=== PATIENT | female | born 1950 | race Caucasian/White ===

== ENCOUNTER 2017-02-24 12:47 | Outpatient (CLI) | payer OTHER, MEDICARE ==
--- NOTE | 2017-02-24 15:43 | MMO ---
BILATERAL SCREENING MAMMOGRAMS: Date: 02/24/17 Comparison made to prior exams from 2014 and 2013. This patient's mammogram was interpreted with the assistance of computer-aided detection. FINDINGS: Scattered fibroglandular densities. There is evidence of a new or enlarging nodular density seen in the upper outer left breast when compared to prior studies. Recommend further evaluation with diagno stic left breast exam. IMPRESSION: BIRADS 0: Incomplete: Need Additional Imaging Evaluation and/or Prior Mammograms for Comparison Further imaging of left breast required. The facility will notify the patient of the need for additional imaging services. POS: [facility]
== END 2017-02-24 12:48 | disposition home or self-care (01) ==
LOC: SCSMAMMO 12:47
PROVIDERS: ATTEND Family Medicine
DX: Z12.31 Encounter for screening mammogram for malignant neoplasm of breast (principal)
CPT/HCPCS: 77067; G0202

== ENCOUNTER 2017-05-20 12:21 | Outpatient (CLI) | payer OTHER, MEDICARE ==
[2017-05-20 13:11] LABS: Free T4 (Free Thyroxine) 1.15 ng/dL (0.70-1.48); Thyroid Stimulating Hormone 1.1637 uIU/mL (0.35-4.94)
--- NOTE | 2017-05-20 14:02 | RAD ---
CHEST 2 VIEWS: HISTORY: Cough. COMPARISON: 12/22/13. FINDINGS: Cardiac silhouette and pulmonary vasculature are unremarkable. Mediastinum is midline. There is no confluent airspace consolidation, pneumothorax, or pleural fluid. IMPRESSION: No active cardiopulmonary abnormalities are demonstrated. POS: [facility]
== END 2017-05-20 12:22 | disposition home or self-care (01) ==
LOC: SCSRAD 12:21
PROVIDERS: ATTEND Family Medicine
DX: R05 Cough (principal); E03.9 Hypothyroidism, unspecified
CPT/HCPCS: 36415; 71046; 84439; 84443; 84481

== ENCOUNTER 2017-06-24 09:47 | Outpatient (CLI) | payer MEDICARE, OTHER | END 2017-06-24 09:48 | disposition home or self-care (01) | LOC: BICMAMMO 09:47 | PROVIDERS: ATTEND Family Medicine | DX: Z13.820 Encounter for screening for osteoporosis (principal); Z78.0 Asymptomatic menopausal state | CPT/HCPCS: 77080 ==

== ENCOUNTER 2017-08-26 17:31 | Outpatient (CLI) | payer OTHER, MEDICARE ==
--- NOTE | 2017-08-26 20:07 | RAD ---
THREE VIEWS OF THE RIGHT FOOT: 08/26/17 INDICATION: Dropped large bone on right foot five days ago now with right foot pain. FINDINGS: No acute fracture or subluxation is evident. There is enthesopathic change off of the calcaneus. Ther e is a well circumscribed lucency involving the calcaneal bodies suspicious for a unicameral bone cys t. It could also be related to an interosseous lipoma. Mild degenerative changes are seen within the midfoot and forefoot. IMPRESSION: 1. No acute osseous abnormality. 2. Well circumscribed lucency involving the calcaneal body measuring 3 cm is suspicious for eith er unicameral bone cyst or possibly an interosseous lipoma. POS: [facility]
== END 2017-08-26 17:32 | disposition home or self-care (01) ==
LOC: SCSRAD 17:31
PROVIDERS: ATTEND Family Medicine
DX: M79.671 Pain in right foot (principal)

== ENCOUNTER 2018-04-22 18:00 | Outpatient (CLI) | payer OTHER, MEDICARE | END 2018-04-22 18:01 | disposition home or self-care (01) | LOC: SLEEPLAB 18:00 | PROVIDERS: ATTEND Family Medicine | DX: G47.33 Obstructive sleep apnea (adult) (pediatric) (principal); R51 Headache; E66.9 Obesity, unspecified; R06.83 Snoring; I10 Essential (primary) hypertension; E11.9 Type 2 diabetes mellitus without complications; F41.9 Anxiety disorder, unspecified; F32.9 Major depressive disorder, single episode, unspecified; Z68.30 Body mass index [BMI] 30.0-30.9, adult | CPT/HCPCS: 95806 ==

== ENCOUNTER 2018-06-06 04:33 | Observation (INO) | payer OTHER, MEDICARE ==
[2018-06-06] MEDS ORDERED: Clopidogrel Bisulfate 75 MG TAB ONE (05:10)
[2018-06-06] MEDS ORDERED: Mag-Al 1200 mg/1200 mg/30 ML UDCUP ONE (05:11)
[2018-06-06] MEDS ORDERED: Lidocaine Viscous Sol 2% 15 ml UD Cup ONE (05:11)
[2018-06-06] MEDS ORDERED: Nitroglycerin 0.4 MG TAB (25 Tab Bottle) PO PRN (07:57)
[2018-06-06] MEDS ORDERED: Ondansetron PF 4 MG/2 ML Vial IVP PRN (08:01)
[2018-06-06] MEDS ORDERED: Acetaminophen 325 MG TAB PO PRN (08:01)
[2018-06-06] MEDS ORDERED: Ondansetron ODT 4 MG TAB PO PRN (08:01)
[2018-06-06] MEDS ORDERED: Calcium Carbonate 500 MG ChewTAB PO PRN (08:01)
[2018-06-06] MEDS ORDERED: hydrALAZINE 20 MG/ML VIAL SLOW IVP PRN (08:03)
[2018-06-06] MEDS ORDERED: Cyclobenzaprine 10 MG TAB PO PRN (08:06)
[2018-06-06] MEDS ORDERED: tiZANidine HCl 4 MG TAB PO PRN (08:07)
[2018-06-06] MEDS ORDERED: Levothyroxine Sodium 100 MCG TAB PO SCH (08:30)
[2018-06-06] MEDS ORDERED: DULoxetine 60 MG CAP PO SCH (09:00)
[2018-06-06] MEDS ORDERED: ADENOSINE 60 MG/20 ML VIAL ONE (09:27)
[2018-06-06] MEDS ORDERED: Lisinopril 10 MG TAB ONE (11:37)
[2018-06-06] MEDS ORDERED: Iopamidol 370 76% 100 ML VIAL ONE (13:20)
--- NOTE | 2018-06-06 14:49 | NM ---
NUCLEAR MEDICINE CARDIAC MYOCARDIAL PERFUSION SPECT EJECTION FRACTION STUDY WALL MOTION CINE: DATE: 06/06/2018. HISTORY: A 67-year-old female with hypertension, diabetes mellitus, dyslipidemia, and family history of singh ry artery disease who presents with acute chest pain. TECHNIQUE: Number of days: 1. Rest study: Tc99m sestamibi (Cardiolite) dose: 9.7 mCi. Pharmacologic stress: adenosine dose: 40.3 mg. Stress study: Tc99m sestamibi (Cardiolite) dose: 30.0 mCi. FINDINGS: CARDIAC (MYOCARDIAL PERFUSION) SPECT Distribution of sestamibi is homogeneous throughout the left ventricle, with no fixed or reversible m yocardial perfusion defects. EJECTION FRACTION STUDY EF = 73% WALL MOTION CINE The left ventricular wall motion is normal. There is normal systolic wall thickening. IMPRESSION: Normal. venkat[] POS: [facility]
--- NOTE | 2018-06-06 15:51 | CT ---
PRELIMINARY REPORT/[facility]/EMERGENTY AFTER-HOURS PROCEDURE CT Angiography Chest With Contrast EXAM DATE/TIME: 06/06/2018 5:05 AM CLINICAL HISTORY: 67 years old, female; Pain; Chest pain; Other: Chets pain; Prior surgery; Patient HX: Er 1; Presents for evaluation of chest pain which she says started in her back behind her l shoulder blade and radia estefany to her chest. Patient was asleep when the pain started and reports that it has been intermittent since and has never experienced anything like this before. Denies HX of mi or blood clot s. Surgical history of cholecystectomy TECHNIQUE: Axial computed tomographic angiography images of the chest with intravenous contrast using CT angiogr aphy protocol. Coronal and sagittal reformatted images were created and reviewed. MIP reconstructed images were created and reviewed. COMPARISON: No relevant prior studies available. FINDINGS: Pulmonary arteries: There is no evidence of peripheral filling defects within the pulmonary arterial circulation to suggest pulmonary embolism. Aorta: The aorta is normal. There is no evidence of aortic dissection, leak, rupture, or other compli cations. Lungs: There is a 4 mm RIGHT upper lobe pulmonary nodule. Pleural space: Normal. No pneumothorax. No pleural effusion. Heart: Normal. No cardiomegaly. No pericardial effusion. Lymph nodes: Unremarkable. No enlarged lymph nodes. Bones/joints: Unremarkable. No acute fracture. Soft tissues: Unremarkable. IMPRESSION: 1. There is no evidence of aortic dissection, leak, rupture, or other complications. 2. There is no CT evidence of acute pulmonary embolism. 3. There is a 4 mm RIGHT upper lobe pulmonary nodule. For patients at low risk (minimal or absent his tory of smoking and of other known risk factors), no routine follow-up is indicated. For patients at high risk (history of smoking or of other known risk factors), consider optional CT at 12 months. (Jasyhree Escobar et al., Fleischner Society, 2017) CT Angiography Abdomen With Contrast EXAM DATE/TIME: 06/06/2018 5:05 AM TECHNIQUE: Axial computed tomographic angiography images of the abdomen with intravenous contrast material, incl uding non-contrast images if performed. MIP and/or 3D reconstructed images were created and reviewed. Coronal and sagittal reformatted images were created and reviewed. COMPARISON: No relevant prior studies available. FINDINGS: Lungs: Unremarkable. No consolidation. VASCULATURE: Aorta: The aorta is normal. There is no evidence of aortic dissection, leak, rupture, or other compli cations. Celiac trunk and mesenteric arteries: No occlusion or significant stenosis. Renal arteries: No occlusion or significant stenosis. ABDOMEN: Liver: There are no focal liver lesions identified. Gallbladder and bile ducts: There has been a cholecystectomy. Pancreas: The pancreas appears normal. No ductal dilatation. Spleen: The spleen is normal. Adrenals: The adrenal glands are normal. Kidneys and ureters: The kidneys appear normal. No hydronephrosis. Stomach and bowel: The stomach is normal. The duodenum is unremarkable. Intraperitoneal space: Unremarkable. No free air. No significant fluid collection. Bones/joints: Unremarkable. No acute fracture. No dislocation. Soft tissues: Unremarkable. Lymph nodes: Unremarkable. No enlarged lymph nodes. IMPRESSION: There is no evidence of aortic dissection, leak, rupture, or other complications. Thank you for allowing us to participate in the care of your patient. Dictated and Authenticated by: Brendan Marcos MD 06/06/2018 5:28 AM Central Time ([place] & [place]) FINAL REPORT CTA CHEST WITH IV COTNRAST AND 3D POSTPROCESSING CTA ABDOMEN WITH IV CONTRAST AND 3D POSTPROCESSING: I agree with the preliminary report given by Dr. Brendan Marcos of [facility]. POS: [facility]
[2018-06-06] MEDS ORDERED: DULoxetine 30 MG CAP PO SCH (21:00)
[2018-06-06] MEDS ORDERED: Lisinopril 10 MG TAB PO SCH (21:00)
[2018-06-06] MEDS ORDERED: Atorvastatin Calcium 10 MG TAB PO SCH (21:00)
[2018-06-07] MEDS ORDERED: Levothyroxine Sodium 100 MCG TAB PO SCH (06:00)
--- NOTE | 2018-06-07 07:18 | SS ---
DATE OF ADMISSION: 06/06/2018 DATE OF DISCHARGE: 06/04/2018 CHIEF COMPLAINT: Chest discomfort. HISTORY OF PRESENT ILLNESS: The patient is a 67-year-old female with hypertension, hyperlipidemia, diabetes mellitus type 2, and GERD, presented to the emergency room at [facility] with chest discomfort. The patient woke up with sudden onset of chest discomfort that was between the scapula radiating to her left arm. She denies any associated diaphoresis, nausea, vomiting, palpitations, or syncope. The pain was worse on deep breathing. She denies recent immobilization, travel, fever, chills, cough, or heartburn. The pain was moderate in intensity that lasted for approximately 1 hour. The pain somewhat improved after sublingual nitroglycerin. She was transferred to this facility where the pain came back. For this reason , she underwent an aortic dissection protocol that was negative per ER physician report. Her initial vital signs in the emergency room showed temperature 97.9, respirations 14, pulse rate of 79 with a blood pressure of 153/104, O2 saturation 97% on room air. The chest discomfort has resolved at this time. PAST MEDICAL HISTORY: 1. Hypothyroidism. 2. Hypertension. 3. Hyperlipidemia. 4. Diabetes mellitus type 2. 5. Fibromyalgia. 6. Anxiety and depression. 7. Degenerative joint disease. 8. Vitamin D deficiency. 9. GERD. PAST SURGICAL HISTORY: 1. Cholecystectomy. 2. Right hand surgery. ALLERGIES: THE PATIENT IS ALLERGIC TO ASPIRIN AND PENICILLIN. CURRENT HOME MEDICATIONS: 1. Vitamin D daily. 2. Levothyroxine 100 mcg daily. 3. Lisinopril 30 mg at bedtime. 4. Cymbalta 60 mg in the morning and 30 at bedtime. 5. Metformin ER 500 mg b.i.d. 6. Lipitor 10 mg daily. SOCIAL HISTORY: The patient currently lives at home. She denies current use of smoking. She smoked in her 20s. She is full code and makes her own decision with the help of her family. FAMILY HISTORY: Father had several heart attacks in his late 60s. REVIEW OF SYSTEMS: All other review of systems were reviewed and were found negative. PHYSICAL EXAMINATION: VITAL SIGNS: As discussed above. GENERAL: A 67-year-old female, in no apparent distress. Chest discomfort improved. HEENT: Head; atraumatic, normocephalic. Sclerae anicteric. Moist mucous membrane. No oral lesion. NECK: Supple. No JVD appreciated. No carotid bruit. LUNGS: Clear to auscultation bilaterally. No wheezing, rales, or rhonchi. HEART: S1 and S2 present. Regular rate and rhythm. No rubs or gallops appreciated. ABDOMEN: Soft, nontender. Bowel sounds present. No rebound or guarding. EXTREMITIES: No edema or calf tenderness. NEUROLOGIC: Grossly nonfocal. Moves all 4 extremities. PSYCHIATRY: Alert, awake, and oriented x3. SKIN: Warm and dry. LYMPH NODES: No palpable lymph nodes in the neck. PERIPHERAL VASCULAR: Radial pulses palpable bilaterally. MUSCULOSKELETAL: No joint swelling or tenderness. LABORATORY FINDINGS: D-dimer was negative. Troponin negative. BUN 21, creatinine 0.85. WBC 5.7 with hemoglobin 12.5. Chest x-ray by my review was negative for infiltrate. EKG by my review showed sinus rhythm without significant ST-T wave changes. Aortic dissection protocol was negative. She was found to have 4-mm right upper lobe pulmonary nodule. IMPRESSION: 1. Chest discomfort. 2. Diabetes mellitus type 2. 3. Hypertension. 4. Hyperlipidemia. 5. Hypothyroidism. 6. Gastroesophageal reflux disease. 7. Degenerative joint disease. 8. Suspected sleep apnea, currently being worked up. 9. 4-mm right upper lobe lung nodule. PLAN: The patient will be monitored in the observation unit at 23-hour observation admit. She will undergo a Cardiolite stress test due to intermediate probability for coronary artery disease. Metformin will be held for 48 hours. We will resume Cymbalta, levothyroxine, and lisinopril. Her last stress test was more than 2 to 3 years ago. Statins will be resumed. She has a followup with a fishing vessel deckhand for suspected sleep apnea. She was advised to follow up on the right upper lobe 4- mm lung nodule. DISPOSITION: Stress test came back negative. She will be discharged home. Follow up with PCP in 1 week. No Chest pain. Plan was discussed with the patient. She stated understanding. Job ID: [id number] [facility]
== END 2018-06-06 13:22 | disposition home or self-care (01) ==
LOC: ERS 04:33 → ERHOLD 05:07 → UNDODISOB 06-08 13:22
PROVIDERS: ADMIT Internal Medicine; ATTEND Internal Medicine
DX: R07.89 Other chest pain (principal); E78.5 Hyperlipidemia, unspecified; E11.9 Type 2 diabetes mellitus without complications; K21.9 Gastro-esophageal reflux disease without esophagitis; I10 Essential (primary) hypertension; E03.9 Hypothyroidism, unspecified; M79.7 Fibromyalgia; F41.9 Anxiety disorder, unspecified; F32.9 Major depressive disorder, single episode, unspecified; M19.90 Unspecified osteoarthritis, unspecified site; E55.9 Vitamin D deficiency, unspecified; R91.1 Solitary pulmonary nodule; Z87.891 Personal history of nicotine dependence; Z79.84 Long term (current) use of oral hypoglycemic drugs; Z79.899 Other long term (current) drug therapy; Z88.0 Allergy status to penicillin; Z88.8 Allergy status to other drugs, medicaments and biological substances
CPT/HCPCS: 36415; 71275; 78452; 93005; 93017; 96360; 96361; A9500; G0378; J0153; Q9967

== ENCOUNTER 2018-06-07 08:33 | Outpatient (CLI) | payer OTHER, MEDICARE ==
--- NOTE | 2018-06-07 13:33 | MRI ---
MRI OF THE RIGHT SHOULDER WITHOUT CONTRAST: Date: 06/07/18 INDICATION: Right shoulder pain. TECHNIQUE: Multiplanar, multisequence MR images were obtained of the right shoulder without IV contrast. Motion artifact limits detail of the exam. FINDINGS: There is a 1.6 x 1.6 cm full thickness tear involving the anterior mid supraspinatus at the footprint . There is moderate to severe tendinosis of the supraspinatus and infraspinatus. There is a low grade articular surface tear involving the mid infraspinatus at the footprint involving approximately 50% of the tendon thickness. No muscular atrophy is grossly evident. The subscapularis is intact. The bic eps tendon is located. The biceps anchor complex appears intact. The inferior glenohumeral labral lig amentous complex appears intact. Glenohumeral articular surface is normal appearing. There is moderat e to severe AC joint osteoarthrosis. IMPRESSION: 1. Full thickness supraspinatus tear with severe supraspinatus tendinosis. 2. Partial thickness articular surface tear of the mid infraspinatus at the footprint involving appr oximately 50% tendon thickness. 3. Moderate to severe AC joint osteoarthrosis. POS: [facility]
== END 2018-06-07 08:34 | disposition home or self-care (01) ==
LOC: SCSMRI 08:33
PROVIDERS: ATTEND Orthopaedic Surgery
DX: M75.101 Unspecified rotator cuff tear or rupture of right shoulder, not specified as traumatic (principal); M19.011 Primary osteoarthritis, right shoulder

== ENCOUNTER 2018-06-08 20:30 | Outpatient (CLI) | payer OTHER, MEDICARE | END 2018-06-08 20:31 | disposition home or self-care (01) | LOC: SLEEPLAB 20:30 | PROVIDERS: ATTEND Family Medicine | DX: G47.33 Obstructive sleep apnea (adult) (pediatric) (principal); R51 Headache; R06.83 Snoring; E66.9 Obesity, unspecified; F41.9 Anxiety disorder, unspecified; F32.9 Major depressive disorder, single episode, unspecified; I10 Essential (primary) hypertension; E11.9 Type 2 diabetes mellitus without complications; G47.61 Periodic limb movement disorder; Z68.30 Body mass index [BMI] 30.0-30.9, adult | CPT/HCPCS: 95811 ==

== ENCOUNTER 2018-06-22 01:05 | Outpatient (CLI) | payer OTHER, MEDICARE ==
[2018-06-22 14:21] LABS: Hemoglobin 12.6 g/dL (12.0-16.0); Mean Corpuscular HGB CONC 33.1 g/dL (32.0-36.0); Mean Corpuscular Hemoglobin 31.5 pg (27.0-31.0); Mean Corpuscular Volume 95.1 fL (78.0-98.0); Mean Platelet Volume 7.7 fL (7.4-10.4); Platelet Count 260 thou/uL (130-400); RBC Distribution Width 11.9 % (11.5-14.5); Red Blood Cell (RBC) Count 3.99 mill/uL (4.20-5.40); White Blood Cell (WBC) Count 5.1 thou/uL (4.8-10.8)
[2018-06-22 14:48] LABS: Anion Gap 13 mmol/L (10-20); BUN (Urea Nitrogen) 18 mg/dL (9.8-20.1); Calc. Creatinine Clearance 0 mL/min (70-130); Calcium 9.8 mg/dL (7.8-10.44); Carbon Dioxide 23 mmol/L (23-31); Chloride 109 mmol/L (98-107); Estimated GFR-MDRD 62; Glucose 102 mg/dL (80-115); Potassium 3.8 mmol/L (3.5-5.1); Sodium 141 mmol/L (136-145)
== END 2018-06-22 01:06 | disposition home or self-care (01) ==
LOC: LABBT 01:05
PROVIDERS: ATTEND Orthopaedic Surgery
DX: Z01.818 Encounter for other preprocedural examination (principal); M75.101 Unspecified rotator cuff tear or rupture of right shoulder, not specified as traumatic; M19.011 Primary osteoarthritis, right shoulder
CPT/HCPCS: 80048; 85027; 93005; 93010

== ENCOUNTER 2018-06-24 07:14 | Day surgery (SDC) | payer OTHER, MEDICARE ==
[2018-06-22 13:18] VITALS: BMI 30.2
[2018-06-24] MEDS ORDERED: Clindamycin/D5W 600 mg/50 ml Premix Bag ONE (08:02)
[2018-06-24] MEDS ORDERED: Midazolam HCl 2 mg/2 ml Vial ONE (08:22)
[2018-06-24] MEDS ORDERED: Fentanyl 100 MCG/2 ML VIAL ONE ×2 (08:22→10:19)
[2018-06-24] MEDS ORDERED: traMADol HCl 50 MG TAB PO PRN ×2 (08:54)
[2018-06-24] MEDS ORDERED: Zolpidem Tartrate 5 MG TAB PO PRN (08:54)
[2018-06-24] MEDS ORDERED: Ropivacaine 0.2% 550 ML 550 ML NERVE BLCK SCH (08:54)
[2018-06-24] MEDS ORDERED: Promethazine HCl 25 MG/ML VIAL IM PRN (08:54)
[2018-06-24] MEDS ORDERED: Ondansetron PF 4 MG/2 ML Vial IVP PRN (08:54)
[2018-06-24] MEDS ORDERED: HYDROcodone/Acetaminophen 5/325 mg Tablet PO PRN ×2 (08:54)
[2018-06-24] MEDS ORDERED: Fentanyl 100 MCG/2 ML VIAL SLOW IVP PRN (08:55)
[2018-06-24] MEDS ORDERED: Scopolamine 1.5 mg/72 hour Patch ONE (09:00)
[2018-06-24] MEDS ORDERED: Bupivacaine HCl 0.5%/Epinephrine 1:200,000/PF 30 ml Vial ONE ×2 (09:42→13:12)
[2018-06-24] MEDS ORDERED: Ropivacaine 0.2% HCl/PF (40 MG/20 ML VIAL) ONE (13:12)
[2018-06-24] MEDS ORDERED: PHENYLEPHRINE-NS 100 MCG/ML 10 ML SYRINGE ONE (13:21)
[2018-06-24] MEDS ORDERED: PROPOFOL 200 MG/20 ML VIAL ONE (13:21)
[2018-06-24] MEDS ORDERED: Lidocaine 1% PF 5 ML VIAL ONE (13:21)
[2018-06-24] MEDS ORDERED: Ondansetron PF 4 MG/2 ML Vial ONE (13:21)
[2018-06-24] MEDS ORDERED: Rocuronium Bromide 10 MG/ML (10ML VIAL) ONE (13:21)
[2018-06-24] MEDS ORDERED: Glycopyrrolate 0.2 MG/ML 5 ML SYRINGE ONE (13:21)
--- NOTE | 2018-06-25 03:32 | OP ---
DATE OF PROCEDURE: 06/24/2018 PREOPERATIVE DIAGNOSES: 1. Right rotator cuff tear. 2. Acromioclavicular joint arthritis. 3. Impingement. POSTOPERATIVE DIAGNOSES: 1. Right rotator cuff tear. 2. Acromioclavicular joint arthritis. 3. Impingement. PROCEDURES PERFORMED: 1. Right rotator cuff repair. 2. Right distal clavicle resection, arthroscopic Emiliana. 3. Subacromial decompression. SURFACE MINER: None. ANESTHESIOLOGIST: Dr. Kaplan. ANESTHESIA: The patient received general endotracheal intubation with interscalene block. ESTIMATED BLOOD LOSS: 30 mL. TOURNIQUET TIME: None. ANTIBIOTICS: Ancef 2 g. IMPLANTS: 5.5 corkscrew double-loaded and a 5.5 Bio[employer]posite SwiveLock. COMPLICATIONS: None. HISTORY OF PRESENT ILLNESS: Ms. Prasad is a 67-year-old female presenting with right shoulder pain, which has been present for quite some time, in December felt a popping when trying to turn it backwards. Pain continues to radiate down her arms. The patient received injections with limited relief. The patient's pain is severe and kept her up at night. The patient failed conservative measures and desired to proceed with surgery. She had an MRI with evidence of rotator cuff tear. I discussed with the patient the risks and benefits of a right rotator cuff repair with subacromial decompression, possible biceps tenotomy, and distal clavicle resection. She understood the risks and benefits including pain, scar, bleeding, infection, damage to vital structures, decreased range of motion, strength, nonunion, malunion, fracture, or loss of life or limb. The patient understood the risks and benefits and elected to proceed. DESCRIPTION OF PROCEDURE: Time-out was performed, designating the patient's right upper extremity as the operative site, based on site, consents, and marking. After time-out, the patient's right upper extremity was prepped and draped in a sterile fashion, and she was then placed in beach-chair position, placed a posterior working portal, anterior working portal and visualized intra-articularly. There was some degenerative labrum that was debrided, but the biceps looked good. Subscapularis and the glenoid and humerus look good. There was some slight wear in the humerus, but otherwise no full-thickness defects. The capsule looked good and there was no obvious full-thickness tear of the rotator cuff and moved subacromially. The patient had a flap tear that was flapping into the scope from the posterior aspect, which made it kind of difficult to visualize. We cleaned up the rotator cuff footprint and saw the full-thickness tear, at which I placed a 5.5 metal anchor into the bone, had good firm fixation, and passed 4 sutures anterior to posterior and tied posterior to anterior. I then placed a second row laterally and anchored down. I had taken the yoav before this and from my lateral portal cleaned up the bone and then took the yoav again and smoothed it out and hoped to find the patient's distal clavicle. I moved down to distal clavicle using my anterior portal pefromed distal clavicle and from the anterior of the shoulder that was decompressed. I only took just a small portion of the patient's acromion by about 2 to 3 mm. I did not try to take excess amount, but I did release the patient's CA ligament. I cleaned up the joints, saw the final rotator cuff repair, so I completed my decompression of distal clavicle and rotator cuff repair, then washed and closed with 2-0 nylon. The patient will be placed in an abduction pillow. She will follow up with me in 2 weeks to perform elbow, wrist, and hand motion. Job ID: [id number] [facility]
== END 2018-06-24 14:50 | disposition home or self-care (01) ==
LOC: SDC 07:14
PROVIDERS: ATTEND Orthopaedic Surgery
PROC: 0LM14ZZ Reattachment of Right Shoulder Tendon, Percutaneous Endoscopic Approach (ICD-10-PCS; principal; 2018-06-24)
PROC: 0RHJ44Z Insertion of Internal Fixation Device into Right Shoulder Joint, Percutaneous Endoscopic Approach (ICD-10-PCS; principal; 2018-06-24)
PROC: 0RNJ4ZZ Release Right Shoulder Joint, Percutaneous Endoscopic Approach (ICD-10-PCS; principal; 2018-06-24)
DX: S46.011A Strain of muscle(s) and tendon(s) of the rotator cuff of right shoulder, initial encounter (principal); M19.011 Primary osteoarthritis, right shoulder; M25.811 Other specified joint disorders, right shoulder; E11.9 Type 2 diabetes mellitus without complications; I10 Essential (primary) hypertension; E78.00 Pure hypercholesterolemia, unspecified; E07.9 Disorder of thyroid, unspecified; F32.9 Major depressive disorder, single episode, unspecified; F41.9 Anxiety disorder, unspecified; M79.7 Fibromyalgia; E78.5 Hyperlipidemia, unspecified; K21.9 Gastro-esophageal reflux disease without esophagitis; Z79.84 Long term (current) use of oral hypoglycemic drugs; Z79.899 Other long term (current) drug therapy; Z88.0 Allergy status to penicillin; Z88.8 Allergy status to other drugs, medicaments and biological substances; X50.0XXA Overexertion from strenuous movement or load, initial encounter
CPT/HCPCS: A4306; C1713; J0670; J2001; J2250; J2405; J2704; J2795; J3010; J3490